=== PATIENT | female | born 1955 | race Asian ===

== ENCOUNTER → 2020-10-08 | Outpatient (CLI) | payer BC, OTHER ==
--- NOTE | 2020-10-08 15:56 | RAD ---
EXAM: 3 views of the left ankle DATE: 10/08/2020 9:36 AM INDICATION: Reason: MEDIAL LEFT ANKLE PAIN / Spl. Instructions: WEIGHT BEARING / History: COMPARISON: No Prior FINDINGS: No acute fracture or dislocation. Ankle mortise is congruent. Talar dome is intact. Joint spaces are preserved without significant degenerative/proliferative change. No significant soft tissue swelling. Small plantar calcaneal enthesophyte. IMPRESSION: 1. No acute fracture or dislocation. Electronically signed by: Joo Kelly MD (10/08/2020 3:54 PM) [id number]
== END ==
LOC: RAD 09:19
PROVIDERS: ATTEND Podiatrist
DX: M77.32 Calcaneal spur, left foot (principal)
CPT/HCPCS: 73610